=== PATIENT | male | born 1995 | race Caucasian/White ===

== ENCOUNTER 2024-07-30 10:40 | Emergency (ER) | payer OTHER, SELFPAY ==
--- NOTE | ~2024-07-30 | US_ITS ---
EXAMINATION: US SCROTUM WITH DOPPLER COMPLETE HISTORY: L scrotal pain/swelling. COMPARISON: There are no prior studies for comparison. FINDINGS: Real-time grayscale ultrasound imaging of the scrotum was performed. Color and pulsed Doppler analysis was also performed. RIGHT TESTICLE: The right testis measures 4.7 x 2.5 x 3.6 cm and demonstrates normal homogeneous echotexture. No masses are seen. The right testis demonstrates normal arterial and venous color Doppler and spectral waveforms. RIGHT EPIDIDYMIS: Normal in size, shape, and vascularity. LEFT TESTICLE: The left testis measures 4.9 x 2.6 x 3.6 cm and demonstrates normal homogeneous echotexture. No masses are seen. The left testis demonstrates normal arterial and venous color Doppler and spectral waveforms. LEFT EPIDIDYMIS: Normal in size, shape, and vascularity. There is a 3 x 4 x 4 mm epididymal head cyst. VARICOCELE: None. HYDROCELE: No significant hydrocele is seen. OTHER COMMENTS: None. US/US scrotum doppler IMPRESSION: 4 mm left epididymal head cyst. Otherwise unremarkable scrotal ultrasound. Electronically signed by: Emile Reid MD 07/30/2024 12:11 PM EDT
--- NOTE | ~2024-07-30 | CT_ITS ---
EXAMINATION: CT ABDOMEN AND PELVIS WITHOUT CONTRAST CLINICAL INFORMATION: [Left back pain. Left lower quadrant pain. Left reticular pattern. COMPARISON: None available. TECHNIQUE: Multidetector volumetric imaging was performed from the superior aspect of the liver through the pubic symphysis. Sagittal and coronal reformatted images were obtained on the technologist's workstation. This CT examination was performed using dose optimization techniques as appropriate, variously including the following: *Automated exposure control *Adjustment of mA and/or kV according to patient size (this includes techniques or standardized protocols for targeted exams where dose is matched to indication/reason for exam; i.e. extremities or head) *Use of iterative reconstruction technique DLP: 500 mGy centimeter. FINDINGS: Limited evaluation of the intra-abdominal organs and vascular structures due to lack of IV contrast. LUNG BASES: No acute airspace disease. No discrete pulmonary nodules. LIVER, GALLBLADDER, AND BILIARY TREE: Liver measures 15 cm. No pericholecystic fluid collection or gallbladder wall thickening. No intrahepatic or extrahepatic biliary ductal dilatation. PANCREAS: No peripancreatic fluid collections. No main pancreatic ductal dilatation. SPLEEN: 10 cm. ADRENAL GLANDS: No nodular lesion. KIDNEYS AND URETERS: No hydronephrosis. There is increased density in the medullary compartment of the kidneys. BLADDER: Fluid-filled. GASTROINTESTINAL TRACT: Appendix is normal. Collapsed appearance of the left hemicolon. Abundant stool. No intestinal obstruction pattern. No pneumatosis intestinalis. No pneumoperitoneum. No ascites. ABDOMINAL WALL: Small tiny fat-containing umbilical hernia. LYMPH NODES: No lymphadenopathy. VASCULAR: No aneurysm, abdominal aorta. PELVIC VISCERA: Inadequate evaluation. OSSEOUS STRUCTURES: No acute fracture or listhesis. Pseudoarthrosis of the large right transverse process of L5-S1. Broad-based disc bulging at L4-5. CT/CT abdomen pelvis wo IV con IMPRESSION: Consider medullary nephrocalcinosis in the correct clinical settings. No hydronephrosis. 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 Fleischner guidelines were followed. Electronically signed by: Ilan Juarez MD 07/30/2024 01:18 PM EDT
--- NOTE | ~2024-07-30 | US_ITS ---
EXAMINATION: US SCROTUM WITH DOPPLER COMPLETE HISTORY: L scrotal pain/swelling. COMPARISON: There are no prior studies for comparison. FINDINGS: Real-time grayscale ultrasound imaging of the scrotum was performed. Color and pulsed Doppler analysis was also performed. RIGHT TESTICLE: The right testis measures 4.7 x 2.5 x 3.6 cm and demonstrates normal homogeneous echotexture. No masses are seen. The right testis demonstrates normal arterial and venous color Doppler and spectral waveforms. RIGHT EPIDIDYMIS: Normal in size, shape, and vascularity. LEFT TESTICLE: The left testis measures 4.9 x 2.6 x 3.6 cm and demonstrates normal homogeneous echotexture. No masses are seen. The left testis demonstrates normal arterial and venous color Doppler and spectral waveforms. LEFT EPIDIDYMIS: Normal in size, shape, and vascularity. There is a 3 x 4 x 4 mm epididymal head cyst. VARICOCELE: None. HYDROCELE: No significant hydrocele is seen. OTHER COMMENTS: None. US/US scrotum IMPRESSION: 4 mm left epididymal head cyst. Otherwise unremarkable scrotal ultrasound. Electronically signed by: Emile Reid MD 07/30/2024 12:11 PM EDT
[2024-07-30 10:48] VITALS: BP 121/76; PULSE 60; RESP 19; TEMP 37; O2SAT 98; BMI 25.5
[2024-07-30 11:21] LABS: MANUAL DIFF FLAG NO
[2024-07-30 11:24] LABS: Appearance Urine Clear; Color Urine Yellow; Glucose Urine UA Negative (Negative); Leukocyte Esterase Urine Negative (Negative); Nitrite Urine Negative (Negative); PH 8.5 (5.0-9.0); Urine Blood Negative (Negative); Urine Ketones Negative (Negative); Urine Protein Negative (Neg-Trace)
[2024-07-30 11:26] LABS: Basophils Percent Auto 0.8 % (0-2); Eosinophils Absolute Auto 0.1 X10*3/uL (0.0-0.4); Eosinophils Percent Auto 1.2 % (0-4); Hematocrit 42.4 % (42.0-52.0); Hemoglobin 14.4 g/dl (14.0-18.0); Imm Gran Abs Auto 0.01 X10*3/uL (0.00-0.03); Imm Gran Pct Auto 0.2 % (0.0-0.4); Lymphocytes Absolute Auto 1.3 X10*3/uL (1.2-4.9); Lymphocytes Percent Auto 27.2 % (20-40); Mean Corpuscular Hemoglobin 29.9 pg (27.0-33.0); Mean Corpuscular Volume 88.1 fL (80.0-98.0); Mean Platelet Volume 12.1 fL (9.4-12.4); Monocytes Absolute Auto 0.3 X10*3/uL (0.1-1.2); Monocytes Percent Auto 6.6 % (2-11); Neutrophils Absolute Auto 3.1 x10*3/uL (2.0-8.3); Platelet Count 132 X10*3/uL (160-400); Red Blood Count 4.81 X10*6/uL (4.60-5.80); Red Cell Distribution Width 12.7 % (11.0-16.0); White Blood Count 4.9 X10*3/uL (4.8-10.8)
[2024-07-30 11:41] LABS: Alanine Aminotransferase 22 U/L (0-40); Albumin Level 4.5 g/dL (3.5-5.0); Alkaline Phosphatase 36 U/L (39-117); Anion Gap 7 (12-20); Aspartate Amino Transferase 23 U/L (5-37); Bilirubin Total 0.4 mg/dL (0.0-1.0); Blood Urea Nitrogen 11 mg/dL (9-16); C Reactive Protein < 0.10 mg/dL (< or = 0.50); Calcium 9.2 mg/dL (8.4-10.2); Carbon Dioxide 28 mmol/L (22-29); Chloride 111 mmol/L (96-108); Creatinine Clr Calc Pharmacy 143.1; Estimated Glomerular Filt Rate > 60; Glucose Random 90 mg/dL (60-115); Potassium 4.1 mmol/L (3.3-5.1); Sodium 142 mmol/L (135-145); Total Protein 6.9 g/dL (6.5-8.0)
[2024-07-30 12:02] LABS: Erythrocyte Sedimentation Rate 2 MM/HR (0-15)
[2024-07-30 12:09] VITALS: BP 132/70; PULSE 86; RESP 16; TEMP 36.7; O2SAT 100
--- NOTE | 2024-07-30 12:11 | PC.NURSE ---
Pt stats pain from Sunday lower back radiating to frontal groin area and now to left testicle. a 6 out of 10 pain. No discharge in urine no foul smells, no new partners, pt states he never got tested for STI's that he can recall. Pt states he did a urine sample unaware of which one he did states urgent care told him it was negative.
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
[2024-07-30 13:18] LABS: CT PCR NOT DETECTED (Not Detect.); NG PCR NOT DETECTED (Not Detect.)
[2024-07-30 14:06] VITALS: BP 139/79; PULSE 58; RESP 13; TEMP 36.7; O2SAT 99
[2024-07-30 14:54] VITALS: BP 135/83; PULSE 55; RESP 14; TEMP 36.7; O2SAT 99
[2024-07-30 14:58] VITALS: BP 135/83; PULSE 55; RESP 14; TEMP 36.7; O2SAT 99
== END 2024-07-30 14:59 | disposition home or self-care (01) ==
PROVIDERS: Physician Assistant Medical; Emergency Provider Emergency Medicine
DX: N50.3 Cyst of epididymis (principal); N50.812 Left testicular pain; K59.00 Constipation, unspecified; E83.59 Other disorders of calcium metabolism; N29 Other disorders of kidney and ureter in diseases classified elsewhere; M54.50 Low back pain, unspecified; R10.30 Lower abdominal pain, unspecified
CPT/HCPCS: 36415; 74176; 76870; 80053; 81003; 85025; 85652; 86140; 87491; 87591; 93975; 99284

== ENCOUNTER → 2024-07-30 10:52 | Outpatient (BNV) | payer OTHER, SELFPAY | PROVIDERS: Emergency Provider Emergency Medicine; Visit Provider Radiology Diagnostic Radiology | DX: N50.3 Cyst of epididymis (principal); R10.32 Left lower quadrant pain | CPT/HCPCS: 74176; 76870; 93975 ==

== ENCOUNTER 2024-08-05 15:42 | Outpatient (AMB) | payer OTHER, SELFPAY ==
--- NOTE | 2024-08-05 15:47 | HO.NEPHOV_ITS ---
Vital Signs 08/05/24 15:50 Height 5 ft 8 in Weight 169 lb 8 oz BMI 25.8 BP 102/64 Blood Pressure Location Lt brachial Position Sitting Intake Visit Reasons: Referred from [facility] [place] [facility] [employer] Required: No Accompanied by: Self / Same As Patient Allergies No Known Allergies Allergy (Verified 08/05/24 15:50) HPI Comments Details: Mr. Phillips is a 29-year-old gentleman with the no history of medical issues recently presented to emergency room in [facility] for evaluation of lower back pain, abdominal pain as well as testicular pain. Had no urinary symptoms. He has no history of renal stones. His pain was not radiating from loin to groin. He had no hematuria, fever, dysuria, fever, chills, nausea, vomiting. He underwent a CT scan which showed possible medullary nephrocalcinosis. His renal functions are normal and his blood pressure is at goal. He is in consultation for medullary nephrocalcinosis. [facility] Social History (Updated 08/05/24 @ 15:49 by Kanchan Real MA) Alcohol intake: former Patient Tobacco Use Status: Former Tobacco user Substance Use Type: Marijuana Review of Systems Const All systems reviewed & are unremarkable except as noted in HPI and below Physical Exam Vital Signs: Last Vital Signs BP 102/64 08/05/24 15:50 BMI result Body Mass Index 25.8 Const General: comfortable and no acute distress Orientation/consciousness: patient oriented x3 HEENT Head: Yes normocephalic Mouth: Normal oral and palatal mucosa present Eyes EOM: EOMs intact bilaterally Neck Neck: Yes supple Resp Auscultation: clear to auscultation bilaterally Cardio Jugular venous distension: no JVD Rate: regular rate GI Palpation (GI): Soft to palpation Auscultation: normal bowel sounds General: Yes no CVA tenderness Back/Spine/Pelvis Back: no CVA tenderness Skin General skin exam: no rashes or lesions noted Neuro General: patient oriented x3 and moves all extremities Extrem General: Yes no pedal edema Results Reviewed Nephrology Results: Hgb 14.4 g/dl (14.0-18.0) 07/30/24 WBC 4.9 X10*3/uL (4.8-10.8) 07/30/24 Plt Count 132 X10*3/uL (160-400) L 07/30/24 Sodium 142 mmol/L (135-145) 07/30/24 Potassium 4.1 mmol/L (3.3-5.1) 07/30/24 Chloride 111 mmol/L (96-108) H 07/30/24 Carbon Dioxide 28 mmol/L (22-29) 07/30/24 BUN 11 mg/dL (9-16) 07/30/24 Creatinine 0.75 mg/dL (0.5-1.4) 07/30/24 Calcium 9.2 mg/dL (8.4-10.2) 07/30/24 Urine Protein Negative mg/dL (Neg-Trace) 07/30/24 Assessment & Plan Assessment & Plan (1) Medullary calcification of kidney: Code(s): N28.89 - Other specified disorders of kidney and ureter Category: Medical Plan Mr Phillips recently had abdominal pain and 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 He denied any family history of medullary sponge kidney. His renal functions are normal. His blood pressure is at goal. He has no microscopic hematuria or proteinuria. He should maintain good hydration. I did not initiate him on any medications. I ordered follow-up lab work and plan to do imaging studies at the next office v isit. Answered all questions. Follow-up appointment given Orders: Orders Creatinine 1 Year N28.89 - Other specified disorders of kidney and ureter UA and rflx microscopic 1 Year N28.89 - Other specified disorders of kidney and ureter Electrolytes 1 Year N28.89 - Other specified disorders of kidney and ureter Blood Urea Nitrogen 1 Year N28.89 - Other specified disorders of kidney and ureter Medications: Discontinued lidocaine 5% (Lidoderm) leave on most painful area for up to 12 hrs Discontinued Reason: Patient no longer taking 1 patch topical DAILY 15 ea 0RF polyethylene glycol 3350 (Miralax) Discontinued Reason: Patient no longer taking 17 grams PO DAILY PRN 238 grams 0RF constipation Coding Level of Care Code New Pt Level 4 (91354) Diagnoses Medullary calcification of kidney N28.89
[2024-08-05 15:50] VITALS: BP 102/64; BMI 25.8
== END 2024-08-05 16:21 | disposition home or self-care (01) ==
LOC: HO.HKAS 15:43
PROVIDERS: Visit Provider Internal Medicine Nephrology
DX: N28.89 Other specified disorders of kidney and ureter (principal)
CPT/HCPCS: 99204

== ENCOUNTER → 2024-08-05 15:42 | Outpatient (BNVA) | payer OTHER, SELFPAY | PROVIDERS: Visit Provider Internal Medicine Nephrology | DX: N28.89 Other specified disorders of kidney and ureter (principal) | CPT/HCPCS: 99202 ==